=== PATIENT | male | born 1960 | race Caucasian/White ===

== ENCOUNTER 2022-02-23 16:09 | Emergency (ER) | payer SELFPAY ==
[~2022-02-23] VITALS: Ht 172.7 cm; Wt 86.0 kg
[2022-02-23 16:53] VITALS: BP 139/95
--- NOTE | 2022-02-23 17:05 | NUR ---
RECEIVED VO FOR C-XRAY FROM JYOTSNA LYNN.
[2022-02-23] MEDS ORDERED: dexamethasone sod phosphate 10mg/ml inj PO STA (17:54)
[2022-02-23] MEDS ORDERED: BENZ-38 PO (18:12)
[2022-02-23] MEDS ORDERED: CETI10TA19 PO (18:12)
== END 2022-02-23 18:26 | disposition home or self-care (01) ==
LOC: ER 16:11
DX: J20.9 Acute bronchitis, unspecified (principal); I10 Essential (primary) hypertension; Z79.899 Other long term (current) drug therapy
CPT/HCPCS: 71045; 99283; J1100